=== PATIENT | male | born 2000 | race Caucasian/White ===

== ENCOUNTER 2023-11-25 11:07 | Outpatient (CLI) | payer BC | END 2023-11-25 11:08 | disposition home or self-care (01) | LOC: SCSRAD 11:07 | PROVIDERS: ATTEND Nurse Practitioner Family | DX: M25.522 Pain in left elbow (principal) ==

== ENCOUNTER 2023-12-02 08:04 | Outpatient (CLI) | payer BC | END 2023-12-02 08:05 | disposition home or self-care (01) | LOC: SCSMRI 08:04 | PROVIDERS: ATTEND Internal Medicine Hematology & Oncology | DX: S53.32XA Traumatic rupture of left ulnar collateral ligament, initial encounter (principal); S46.812A Strain of other muscles, fascia and tendons at shoulder and upper arm level, left arm, initial encounter ==